=== PATIENT | male | born 1940 | race Caucasian/White ===

== ENCOUNTER 2017-09-09 15:43 | Emergency (ER) | payer OTHER, BC ==
[~2017-09-09] VITALS: Ht 175.3 cm; Wt 124.8 kg
[2017-09-09 16:19] LABS: POINT-OF-CARE METER ID UU13113778
[2017-09-09 18:15] LABS: POINT-OF-CARE METER ID UU13113800
[2017-09-09] MEDS ORDERED: NORCO 5/3251 TABLET PO (19:32)
[2017-09-09] MEDS ORDERED: FLEXERIL5 MG PO (19:32)
[2017-09-09 20:00] VITALS: BP 167/69
== END 2017-09-09 20:00 | disposition home or self-care (01) ==
LOC: EME 15:43
PROVIDERS: Physician Assistant
DX: M54.16 Radiculopathy, lumbar region (principal); E11.9 Type 2 diabetes mellitus without complications
CPT/HCPCS: 72100; 82948; 99281; 99283; J1885; J2270